=== PATIENT | female | born 1965 | race Caucasian/White ===

== ENCOUNTER 2020-02-23 11:53 | Outpatient (REF) | payer OTHER, SELFPAY ==
[2020-02-23 12:14] LABS: COVID-19 Test Negative (Negative)
== END 2020-02-23 11:54 | disposition home or self-care (01) ==
LOC: HO.LAB 11:53
PROVIDERS: PCP Family Medicine; Visit Provider Internal Medicine
DX: Z20.828 Contact with and (suspected) exposure to other viral communicable diseases (principal)
CPT/HCPCS: 87635

== ENCOUNTER 2020-02-26 17:08 | Outpatient (REF) | payer OTHER, SELFPAY ==
[2020-02-26 17:35] LABS: COVID-19 Test Negative (Negative)
== END 2020-02-26 17:09 | disposition home or self-care (01) ==
LOC: HO.LAB 17:08
PROVIDERS: Visit Provider Internal Medicine
DX: Z20.828 Contact with and (suspected) exposure to other viral communicable diseases (principal)
CPT/HCPCS: 87635

== ENCOUNTER 2020-03-01 12:38 | Outpatient (REF) | payer OTHER, SELFPAY ==
[2020-03-01 13:38] LABS: COVID-19 Test Negative (Negative)
== END 2020-03-01 12:39 | disposition home or self-care (01) ==
LOC: HO.LAB 12:38
PROVIDERS: Visit Provider Internal Medicine
DX: Z20.828 Contact with and (suspected) exposure to other viral communicable diseases (principal)
CPT/HCPCS: 87635